=== PATIENT | male | born 1960 | race Caucasian/White ===

== ENCOUNTER 2016-11-16 09:22 | Day surgery (SDC) | payer BC ==
--- NOTE | 2016-11-10 12:48 | HISTORY AND PHYSICAL E ---
History and Physical NAME: PARAS CAMPOS : 1960 AGE: 56Y ADMITTED: 11/16/2016 ROOM: CHIEF COMPLAINT: Patient for colon screening. REVIEW OF SYSTEMS: HEAD, EYES, EARS, NOSE, THROAT: Unremarkable. CARDIAC: High cholesterol. FAMILY HISTORY: Father has heart disease. Mom is alive and has heart disease. SOCIAL HISTORY: . No children. MEDICATIONS: Zetia. ALLERGIES: Negative. HISTORY: I saw him on 2004 when he did have colonoscopy for rectal bleeding. The patient did have adenoma, sigmoid polyp. At this time, patient for colon screening. He does have history of diverticulosis. PHYSICAL EXAMINATION: CONSTITUTIONAL: Patient is alert, oriented. VITAL SIGNS: Blood pressure 120/80, pulse 80, respirations 20, temp is 98. HEAD, EYES, EARS, NOSE, THROAT: Normal. NECK: Supple. LUNGS: Clear. ABDOMEN: Soft. NEUROLOGIC: Exam negative. Colonoscopy shows colorectal polyps, colon screening. Difficult sharp curve in the sigmoid colon, diverticulosis. Difficult successful cannulation because of diverticulosis. CONCLUSION: Diverticulosis, difficult sigmoid descending colon diverticulosis, colorectal polyps. PLAN: Colonoscopy. The patient had colon done 2012 which was sigmoid diverticulosis and hemorrhoids. CONCLUSION: Colon screening. Patient to schedule for 11/16. DICTATING PHYSICIAN: RODGER CARL M.D. [id number] PHY#: [id number] ID: [id number] JOB#: [id number] ACCT: [id number] cc:MINISTERIO WEST M.D., MAHMOUD M.D. >
--- NOTE | 2016-11-15 14:04 | HISTORY AND PHYSICAL E ---
History and Physical NAME: PARAS CAMPOS : 1960 AGE: 56Y ADMITTED: 11/16/2016 ROOM: PRIMARY CARE PHYSICIAN: MINISTERIO WEST M.D. CHIEF COMPLAINT: The patient presented for colon screening. HISTORY: I saw the patient in 2004. He did have polyp resected, sigmoid and diverticulosis. The patient's 2005 colonoscopy shows the following: No polyps. Colonoscopy in 2008 showed diverticulosis. The patient did have external hemorrhoids, sigmoid diverticulosis. The patient did have a colonoscopy done in the year 2012; no evidence of polyps, no bleeding. PAST SURGICAL HISTORY: Negative. SOCIAL HISTORY: . No children. Does not smoke. Does not drink. FAMILY HISTORY: Father had heart disease. Mom has heart disease. MEDICATIONS: 1. The patient takes aspirin. 2. Fish oil. 3. Lipitor. ALLERGIES: Negative. REVIEW OF SYSTEMS: ENDOCRINE: Negative. PHYSICAL EXAMINATION: GENERAL: Pleasant, alert, oriented, in no acute distress. VITAL SIGNS: Blood pressure 120/80, pulse 80, respirations 20, temp is 98. HEAD, EYES, EARS, NOSE, THROAT: Normal. NECK: Supple. LUNGS: Clear. ABDOMEN: Soft. NEUROLOGIC: Exam negative. CONCLUSION: Colon screening. PLAN: Colon exam scheduled for 11/16. DICTATING PHYSICIAN: RODGER CARL M.D. [id number] [id number] PHY#: [id number] ID: [id number] JOB#: [id number] ACCT: [id number] cc:RODGER CARL M.D., ROBERT M.D. >
[2016-11-16] MEDS ORDERED: GLYCOPYRROLATE INJ 0.4 MG/2 ML VIAL ONE (10:15)
[2016-11-16] MEDS ORDERED: LIDOCAINE 2% JELLY 30 ML TUBE ONE (10:15)
[2016-11-16] MEDS ORDERED: NALOXONE HCL INJ/PF 0.4 MG/1 ML SDV ONE (10:15)
[2016-11-16] MEDS ORDERED: ONDANSETRON HCL INJ/PF 4 MG/2 ML SDV ONE (10:15)
[2016-11-16] MEDS ORDERED: FENTANYL CITRATE INJ/PF 100 MCG/2 ML AMPUL ONE (10:16)
[2016-11-16] MEDS ORDERED: EPINEPHRINE INJ 1 MG/10 ML DISP.SYRIN ONE (10:17)
[2016-11-16] MEDS ORDERED: GLUCAGON,HUMAN RECOMB 1 MG INJ ONE (10:17)
[2016-11-16] MEDS ORDERED: FLUMAZENIL INJ 0.5 MG/5 ML VIAL IV ONE (10:17)
[2016-11-16] MEDS: MIDAZOLAM 2 MG/2 ML INJ ONE ×2 (10:46→10:50)
[2016-11-16] MEDS: FENTANYL CITRATE INJ/PF 100 MCG/2 ML AMPUL ONE ×2 (10:48→10:52)
[2016-11-16 12:04] VITALS: BP 133/82
[2016-11-16 12:13] LABS: ABSOLUTE EOSINOPHILS # (AUTO) 0.1 10^3/uL (0.0-0.6); ABSOLUTE LYMPHOCYTES (AUTO) 1.6 10^3/uL (0.5-4.7); ABSOLUTE MONOCYTES (AUTO) 0.6 10^3/uL (0.1-1.4); ABSOLUTE NEUT (AUTO) 5.5 10^3/uL (1.7-8.2); BASOPHILS % (AUTO) 0.4 % (0-2); EOSINOPHILS % (AUTO) 1.6 % (0-6); HEMATOCRIT 46.2 % (37.9-51.0); HEMOGLOBIN 15.5 g/dL (13.5-17.0); HGB HCT DIFFERENCE 0.3; LYMPHOCYTES % (AUTO) 19.9 % (13-45); MEAN CORPUSCULAR HEMOGLOBIN 30.7 pg (27.0-33.4); MEAN CORPUSCULAR HGB CONC 33.5 g/dL (32.0-36.0); MEAN CORPUSCULAR VOLUME 92 fl (80-97); MONOCYTES % (AUTO) 8.2 % (3-13); RED BLOOD COUNT 5.03 10^6/uL (4.35-5.55); RED CELL DISTRIBUTION WIDTH 13.4 % (11.5-14.0); SEGMENTED NEUTROPHILS % (AUTO) 69.9 % (42-78); WHITE BLOOD COUNT 7.8 10^3/uL (4.0-10.5)
--- NOTE | 2016-11-16 13:44 | DISCHARGE SUMMARY E ---
Discharge Summary NAME: PARAS CAMPOS : 1960 AGE: 56Y ADMITTED: 11/16/2016 DISCHARGED: 11/16/2016 SUMMARY: The patient is 56, has history of adenoma polyp. Today's colonoscopy was successful to the cecum. No evidence of polyps. Severe diverticulosis, sigmoid and descending colon. DISCHARGE PLAN: 1. Soft, low-residue diet for 5 days. 2. Baseline CBC. 3. Consider follow-up colonoscopy after 10 years. DICTATING PHYSICIAN: RODGER CARL M.D. 1209M 1121 PHY#: [id number] ID: [id number] JOB#: [id number] ACCT: [id number] cc:RODGER CARL M.D., ROBERT M.D. >
--- NOTE | 2016-11-16 13:48 | OPERATIVE REPORT E ---
Operative Report NAME: PARAS CAMPOS : 1960 AGE: 56Y DATE OF SURGERY: 11/16/2016 ROOM: PREOPERATIVE DIAGNOSIS: Colon screening. POSTOPERATIVE DIAGNOSIS: Sigmoid descending colon diverticulosis, severe. No evidence of polyps. PROCEDURE: Colonoscopy. SURGEON: RODGER CARL M.D. TISSUE REMOVED OR ALTERED: None. ANESTHESIA: Versed 2, fentanyl 100. DESCRIPTION: Rectal exam normal. Sigmoid descending colon diverticulosis, severe. Descending colon diverticulosis. Transverse colon normal. Ascending cecum normal. Scope withdrawn from cecum, ascending, transverse, descending, sigmoid all the way to the rectum. CONCLUSION: Colonoscopy, difficult, successful to the cecum, no polyps. Severe diverticulosis. DISCHARGE PLAN: Hold aspirin, nonsteroidal 5 days. Soft, low-residue diet 5 days. Baseline CBC. DICTATING PHYSICIAN: RODGER CARL M.D. [id number] [id number] PHY#: [id number] ID: [id number] JOB#: [id number] ACCT: [id number] cc:RDOGER CARL M.D. >
== END 2016-11-16 12:05 | disposition home or self-care (01) ==
LOC: END 09:22
PROVIDERS: ATTEND Specialist
PROC: 0DJD8ZZ Inspection of Lower Intestinal Tract, Via Natural or Artificial Opening Endoscopic (ICD-10-PCS; principal; 2016-11-16 10:00)
DX: Z12.11 Encounter for screening for malignant neoplasm of colon (principal); K57.30 Diverticulosis of large intestine without perforation or abscess without bleeding; E78.00 Pure hypercholesterolemia, unspecified; Z79.82 Long term (current) use of aspirin; Z79.899 Other long term (current) drug therapy
CPT/HCPCS: 45378; 36415; 85025; J2250; J3010; J1610; J2405; J0171; J2310; J3490